=== PATIENT | male | born 1995 | race Caucasian/White ===

== ENCOUNTER 2018-07-02 16:11 | Emergency (ER) | payer MEDICAID ==
[~2018-07-02] VITALS: Ht 170.2 cm; Wt 79.4 kg
[2018-07-02 16:15] VITALS: BP_SYST 141
[2018-07-02] MEDS ORDERED: DIPH-TET-PERTUS Vaccine 0.5 ML VIAL (ADACEL) I.M. ONE (17:45)
[2018-07-02] MEDS ORDERED: BACITRACIN 1 GM OINT TP ONE (17:45)
[2018-07-02 18:52] VITALS: BP_SYST 138
== END 2018-07-02 18:52 | disposition home or self-care (01) ==
LOC: SED 16:11
DX: S61.211A Laceration without foreign body of left index finger without damage to nail, initial encounter (principal); W26.8XXA Contact with other sharp object(s), not elsewhere classified, initial encounter; Y93.89 Activity, other specified; Y92.89 Other specified places as the place of occurrence of the external cause; Y99.8 Other external cause status
CPT/HCPCS: 90715; 99283

== ENCOUNTER 2021-05-31 20:53 | Emergency (ER) | payer MEDICAID ==
[~2021-05-31] VITALS: Ht 167.6 cm; Wt 77.1 kg
[2021-05-31 21:10] VITALS: BP_SYST 132
--- NOTE | 2021-05-31 21:20 | NUR ---
Patient ambulatory to bed 5 for evaluation anfd treatment
[2021-05-31] MEDS ORDERED: LIDOCAINE 1% 10 MG/ML, 20 ML MDV SUBCUT ONE (21:45)
[2021-05-31] MEDS ORDERED: DIPH-TET-PERTUS Vaccine 0.5 ML VIAL (ADACEL) I.M. ONE (22:15)
== END 2021-05-31 22:15 | disposition home or self-care (01) ==
LOC: SED 20:53
DX: S61.412A Laceration without foreign body of left hand, initial encounter (principal); W25.XXXA Contact with sharp glass, initial encounter; Y93.89 Activity, other specified; Y92.89 Other specified places as the place of occurrence of the external cause; Y99.8 Other external cause status
CPT/HCPCS: 90715; 99283